=== PATIENT | female | born 1965 | race Caucasian/White ===

== ENCOUNTER 2018-02-24 13:14 | Emergency (ER) | payer MEDICAID ==
[~2018-02-24] VITALS: Ht 160 cm; Wt 62.6 kg
[2018-02-24 13:17] VITALS: Ht 160 cm; Wt 62.6 kg
[2018-02-24 14:24] VITALS: BP 134/88
== END 2018-02-24 14:24 | disposition home or self-care (01) ==
LOC: ED 13:14
DX: S62.302D Unspecified fracture of third metacarpal bone, right hand, subsequent encounter for fracture with routine healing (principal); J45.909 Unspecified asthma, uncomplicated; I10 Essential (primary) hypertension; V89.2XXD Person injured in unspecified motor-vehicle accident, traffic, subsequent encounter
CPT/HCPCS: J1885